=== PATIENT | male | born 1980 | race Caucasian/White ===

== ENCOUNTER → 2020-12-11 10:07 | Outpatient (BNVA) | payer MEDICAID, SELFPAY | PROVIDERS: PCP Nurse Practitioner Family; Visit Provider Psychiatry & Neurology Neurology | DX: R06.83 Snoring (principal); R06.81 Apnea, not elsewhere classified; G47.19 Other hypersomnia | CPT/HCPCS: 99202 ==

== ENCOUNTER → 2021-03-19 20:08 | Outpatient (REF) | payer MEDICAID, SELFPAY | LOC: HO.SL 20:08 | PROVIDERS: Visit Provider Psychiatry & Neurology Neurology | DX: G47.33 Obstructive sleep apnea (adult) (pediatric) (principal) | CPT/HCPCS: 95810 ==

== ENCOUNTER → 2021-04-02 08:27 | Outpatient (BNVA) | payer MEDICAID, SELFPAY | PROVIDERS: PCP Nurse Practitioner Family; Visit Provider Nurse Practitioner Family ==

== ENCOUNTER → 2021-07-23 08:31 | Outpatient (BNVA) | payer MEDICAID, SELFPAY | PROVIDERS: PCP Nurse Practitioner Family; Visit Provider Nurse Practitioner Family | DX: G47.33 Obstructive sleep apnea (adult) (pediatric) (principal); G47.19 Other hypersomnia; Z99.89 Dependence on other enabling machines and devices | CPT/HCPCS: 99212 ==

== ENCOUNTER → 2021-10-29 08:49 | Outpatient (BNVA) | payer MEDICAID, SELFPAY | PROVIDERS: Visit Provider Nurse Practitioner Family | DX: G47.33 Obstructive sleep apnea (adult) (pediatric) (principal); Z99.89 Dependence on other enabling machines and devices | CPT/HCPCS: 99212 ==

== ENCOUNTER → 2022-03-04 11:14 | Outpatient (BNVA) | payer MEDICAID, SELFPAY | PROVIDERS: PCP Nurse Practitioner Family; Visit Provider Nurse Practitioner Family | DX: G47.33 Obstructive sleep apnea (adult) (pediatric) (principal); Z99.89 Dependence on other enabling machines and devices | CPT/HCPCS: 99212 ==

== ENCOUNTER 2023-04-02 07:55 | Outpatient (AMB) | payer BC, SELFPAY ==
--- NOTE | 2023-04-02 08:02 | A.OFFVIS_ITS ---
Intake Vital Signs 04/02/23 08:08 Height 6 ft 3 in Weight 383 lb 4 oz BMI 47.9 BP 130/70 Pulse 57 Pulse Source Pulse Oximeter Pulse Oximetry (%) 97 Oxygen Delivery Method Room Air Intake Visit Reasons: 1 yr f/u appt-Conf Intake Note: Patient presents for 1 year f/u. Having issues with [employer] and having trouble with getting supplies. If possible to change company? Allergies No Known Allergies Allergy (Verified 04/02/23 08:07) HPI HPI Comments History of Present Illness Details 41 y/o male patient presents for follow up of LEONIE on CPAP. CPAP compliance and therapy response (01/02/23-04/01/23) reviewed via patient's phone [email or web address]. Pt's home care company is [facility] [employer] [facility], and uses [facility] CPAP. Pt is on APAP 12-20 cmH2O. Usage days 100 % and average usage hours was 7 hrs 20 min. The residual AHI was less than 2/hr. Pt reports he feels much better, he sleeps well 7-9 hours and has more energy during daytime. He can stay up all day without difficulty. He is more physically active, started exercise. Pt reports that [facility] [employer] [facility] has not send the CPAP supplies since September,. [facility] Surgical History No history of previous surgery Family History Father No problems noted. Mother No problems noted. Social History Household Members: Children Alcohol intake: current Alcohol intake frequency: holidays/special occasions only Patient Tobacco Use Status: Never used Tobacco Current occupational status: employed Current occupation: [employer] Review of Systems Const All systems reviewed & are unremarkable except as noted in HPI and below ENT Reports Normal hearing present Neuro Reports Normal hearing present Physical Exam Vital Signs: Last Vital Signs Pulse 57 04/02/23 08:08 BP 130/70 04/02/23 08:08 Pulse Ox 97 04/02/23 08:08 Oxygen Delivery Method Room Air 04/02/23 08:08 BMI result Body Mass Index 47.9 Const General: cooperative and comfortable Orientation/consciousness: patient oriented x3 Limitations: no limitations Resp Effort & Inspection: normal respiratory effort and able to speak in complete sentences Neuro General: patient oriented x3, gait normal and moves all extremities Cranial nerves: Yes Normal facial strength present, Yes Midline tongue present, Yes Symmetric palate elevation present, Yes Normal hearing present, Yes Ability to bilaterally rotate head present and Yes Ability to bilaterally elevate shoul ders present Cognition (Neuro): normal cognition Psych Appearance: grossly normal and well kempt Affect: normal affect Attitude: cooperative Assessment & Plan Assessment & Plan (1) Obstructive sleep apnea (adult) (pediatric): Comment: Severe degree of sleep apnea, AHI was 87/hr, O2 nav was 63% Code(s): G47.33 - Obstructive sleep apnea (adult) (pediatric) Plan Continue to use CPAP at 12-20 cmH2O as patient experiences good clinical effects, rest sleep and improved breathing and daytime sleepienss has resolved. Stressed compliance, use CPAP nightly and more than 4 hours. Clean mask and tubing regularly. Continue to do daily exercise and manage diet for wt reduction. Will send new CPAP supply prescription to [facility]. Coding Level of Care Code Est Pt Level 3 (88739) Diagnoses Obstructive sleep apnea (adult) (pediatric) G47.33
[2023-04-02 08:08] VITALS: BP 130/70; PULSE 57; O2SAT 97; BMI 47.9
== END 2023-04-02 08:28 | disposition home or self-care (01) ==
LOC: HO.HSMC 07:55
PROVIDERS: PCP Nurse Practitioner Family; Visit Provider Nurse Practitioner Family
DX: G47.33 Obstructive sleep apnea (adult) (pediatric) (principal)
CPT/HCPCS: 99213

== ENCOUNTER → 2023-04-02 07:55 | Outpatient (BNVA) | payer BC, SELFPAY | PROVIDERS: PCP Nurse Practitioner Family; Visit Provider Nurse Practitioner Family ==